=== PATIENT | male | born 1990 | race African-American/Black ===

== ENCOUNTER 2016-07-18 00:57 | Emergency (ER) | payer MEDICAID ==
[~2016-07-18] VITALS: Ht 185.4 cm; Wt 90.7 kg
[~2016-07-18 00:57] MED LIST: ACETAMINOPHEN-1 EAC1 ORAL; BACTRIM DS TAB1 EAC1 ORAL; CLINDAMYCIN HC300 MG ORAL; HYDROCODON-ACE1 EA15 ORAL; IBUPROFEN800 MG ORAL; KEFLEX500 MG ORAL; NORCO 5-325 TA1 EACH ORAL
[2016-07-18 01:07] VITALS: BP 107/67
[2016-07-18] MEDS ORDERED: NKM (01:07)
[2016-07-18] MEDS ORDERED: IBUPROFEN600 MG ORAL (02:56)
[2016-07-18] MEDS ORDERED: KEFLEX500 MG ORAL (02:56)
[2016-07-18 03:00] VITALS: BP 115/67
[2016-07-18 03:19] VITALS: BP 115/67
--- NOTE | 2016-07-18 11:42 | Diagnostic Imaging Report ---
Indications: PAIN Technique: 3 views of the right hand Comparison: None Findings: No acute fractures. No dislocations. Joint spaces are preserved. No radiopaque foreign body. Normal mineralization. Impression: No acute process
--- NOTE | 2016-07-21 13:59 | Emergency Room Report ---
History of Present Illness General Chief Complaint: Upper Extremity Injury Source: Patient Present Illness HPI Patient is a 25-year-old male who presented after increased pain swelling to his middle finger. Patient stated that he had crushed his hand in a gate. The patient had gradual onset of pain. He reported increased pain with movements. He had noted some initial abrasion to his hand. He reports some improvement in the swelling since initial injury. He denied any fever. He denied any numbness to his extremities. Allergies: Coded Allergies: No Known Allergies (Unverified , 11/09/14) Patient History Past Medical History: see triage record Reviewed Nursing Documentation: PMH: Agreed, PSxH: Agreed Nursing Documentation-PMH Past Medical History: No Stated History Review of Systems All Other Systems: negative except mentioned in HPI Physical Exam Vital Signs Date Time Temp Pulse Resp B/P Pulse Ox O2 Delivery O2 Flow Rate FiO2 07/18/16 01:01 97.7 81 16 107/67 98 Room Air General Appearance: well appearing, no apparent distress, alert, GCS 15 Head: normocephalic, atraumatic ENT: hearing grossly normal, normal voice Neck: full range of motion, supple Respiratory: no respiratory distress, speaking full sentences Cardiovascular #1: normal inspection, regular rate, rhythm, no edema Musculoskeletal: no calf tenderness Neurologic: normal inspection, alert, oriented x3, responsive, normal gait Psychiatric: mood/affect normal Skin: other - swelling to hand 3rd finger Medical Decision Making Diagnostic Impression: Primary Impression: Rash and other nonspecific skin eruption ER Course Patient presented for hand swelling. Differential diagnosis included wasn't limited to fracture, cellulitis, compartment syndrome among others. The patient presented perfusion to his fingers. X-ray imaging of the hand the 3 views interpreted by me showed normal bony alignment without fracture. Patient was given prescription for Keflex as a piercing may have a mild infection.The patient is advised to follow up with primary care doctor in 1-2 days. Patient is advised to return if any worsening condition or if any changes in status that are concerning. The patient is advised to keep his hand elevated as much as possible to minimize swelling. Last Vital Signs Date Time Temp Pulse Resp B/P Pulse Ox O2 Delivery O2 Flow Rate FiO2 07/18/16 03:19 97.7 68 17 115/67 99 Room Air Status: improved Disposition: HOME, SELF-CARE Condition: Stable Scripts Ibuprofen* (MOTRIN*) 600 Mg Tablet 600 MG ORAL Q8H Y for For Pain, #30 TAB 0 Refills Prov: Charanjit Rucker 07/18/16 Cephalexin* (KEFLEX*) 500 Mg Capsule 500 MG ORAL EVERY 6 HOURS, #28 CAP 0 Refills Prov: Charanjit Rucker 07/18/16 Referrals: [facility] (PCP) Patient Instructions: Hand Contusion Charanjit Rucker Jul 21, 2016 13:59
== END 2016-07-18 03:19 | disposition home or self-care (01) ==
LOC: EMR 01:47
DX: R21 Rash and other nonspecific skin eruption (principal)
CPT/HCPCS: 99283

== ENCOUNTER 2016-10-06 02:01 | Emergency (ER) | payer MEDICAID ==
[~2016-10-06] VITALS: Ht 185.4 cm; Wt 90.7 kg
[~2016-10-06 02:01] MED LIST changes: +IBUPROFEN600 MG ORAL; +NKM
[2016-10-06] MEDS ORDERED: Norco 5mg/325mg tab ORAL ONE (02:30)
--- NOTE | 2016-10-06 02:47 | Emergency Room Report ---
History of Present Illness General Chief Complaint: Upper Extremity Injury Source: Patient Present Illness HPI Is a 25-year-old male who is right-hand dominant. He presents with right wrist pain. He had a previous fracture of the base of the fifth metacarpal bone in the past. He was playing basketball and he fell on outstretched hand. Now swollen and tender. No nausea no vomiting. No fever chills. Worse with movement. Denies any other complaint. Allergies: Coded Allergies: No Known Allergies (Unverified , 11/09/14) Patient History Past Medical History: see triage record, old chart reviewed Past Surgical History: other Pertinent Family History: none Social History: Denies: smoking Immunizations: other Reviewed Nursing Documentation: PMH: Agreed, PSxH: Agreed Nursing Documentation-PMH Past Medical History: No Stated History Review of Systems Eye: Denies: blurred vision, eye pain ENT: Denies: ear pain, nose congestion, throat swelling Respiratory: Denies: cough, shortness of breath Cardiovascular: Denies: chest pain, palpitations Gastrointestinal: Denies: abdominal pain, diarrhea, nausea, vomiting Musculoskeletal: Reports: joint pain, joint swelling, Denies: back pain Skin: Denies: rash Neurological: Denies: headache, numbness Endocrine: Denies: increased thirst, increased urine Hematologic/Lymphatic: Denies: easy bruising All Other Systems: negative except mentioned in HPI Physical Exam Vital Signs Date Time Temp Pulse Resp B/P Pulse Ox O2 Delivery O2 Flow Rate FiO2 10/06/16 02:04 97.9 90 16 125/76 96 Room Air vitals normal Sp02 EP Interpretation: reviewed, normal General Appearance: well appearing, no apparent distress, alert Head: normocephalic, atraumatic Eyes: bilateral eye EOMI, bilateral eye PERRL ENT: hearing grossly normal, normal pharynx Neck: full range of motion, supple, no meningismus Respiratory: chest non-tender, lungs clear, normal breath sounds Cardiovascular #1: regular rate, rhythm, no murmur Gastrointestinal: normal bowel sounds, non tender, no mass, no organomegaly, no bruit, non-distended Musculoskeletal: back normal, gait/station normal, other - Right wrist: He has callus to base of fifth metacarpal bone. He has mild edema and swelling over the distal radius. Normal pulse. Sensation normal. Neurologic: alert, oriented x3 Psychiatric: mood/affect normal Skin: warm/dry Procedures Splinting Splinting : Consent: Verbal Pre-Made Type: velcro Splint: volar Pre-Proc Neuro Vasc Exam: normal Post-Proc Neuro Vasc Exam: normal Patient Tolerated: Well Complications: None Medical Decision Making Diagnostic Impression: Primary Impression: Right wrist sprain Qualified Codes: S63.501A - Unspecified sprain of right wrist, initial encounter ER Course Patient with right wrist sprain. No evidence of any fracture dislocation. We' ll discharge home. Other X-Ray Diagnostic Results # of Views/Limited Vs Complete: 3 View EP Interpretation: Yes Interpretation: no fractures, no dislocation, no soft tissue swelling Indication: Pain Impression: No acute disease Interpreting ER Provider: Aris Sotomayor MD Last Vital Signs Date Time Temp Pulse Resp B/P Pulse Ox O2 Delivery O2 Flow Rate FiO2 10/06/16 02:04 97.9 90 16 125/76 96 Room Air Referrals: ELIO MCCULLOUGH (PCP) ARIS SOTOMAYOR M.D. Oct 06, 2016 02:47
[2016-10-06] MEDS ORDERED: IBUPROFEN600 MG ORAL (02:48)
[2016-10-06 03:03] VITALS: BP_SYST 122; BP_SYST 125; BP_DIAS 76; BP_DIAS 78
--- NOTE | 2016-10-06 10:36 | Diagnostic Imaging Report ---
Clinical Indication:TRAUMA Technique: 3 views of the right wrist Comparison: Hand radiograph 07/18/2016 Findings: Unusual appearance to the hamate on the oblique and lateral views, with suggestion of possible bony fragments seen dorsally. These appear corticated, and are in retrospect visible on the prior study. No other evidence of acute fracture. No dislocation. Impression: Evidence of prior hamate fracture, presumably old. No definite acute bony trauma This agrees with the preliminary interpretation provided by the emergency room physician
== END 2016-10-06 03:00 | disposition home or self-care (01) ==
LOC: EMR 02:38
DX: S63.501A Unspecified sprain of right wrist, initial encounter (principal); W19.XXXA Unspecified fall, initial encounter; Y93.67 Activity, basketball; Y92.89 Other specified places as the place of occurrence of the external cause
CPT/HCPCS: 29260; 99283

== ENCOUNTER 2017-01-21 05:18 | Emergency (ER) | payer MEDICAID ==
[~2017-01-21] VITALS: Ht 182.9 cm; Wt 90.7 kg
[2017-01-21 05:25] VITALS: BP 129/75
[2017-01-21] MEDS ORDERED: Morphine Sulfate 4mg/ml Inj IM ONE (05:30)
[2017-01-21] MEDS ORDERED: TRAMADOL HCL50 MG ORAL (05:58)
[2017-01-21] MEDS ORDERED: BACTRIM DS TAB1 EAC1 ORAL (05:58)
[2017-01-21] MEDS ORDERED: KEFLEX500 MG ORAL (05:58)
[2017-01-21 06:04] VITALS: BP 135/79
--- NOTE | 2017-01-24 07:07 | Emergency Room Report ---
History of Present Illness General Chief Complaint: Skin Rash/Abscess Source: Patient Present Illness HPI 26-year-old M presents ED complaining of pain and swelling to left buttock x1 day. Patient states he has an abscess there which needs to be drained. States it is or he started to drain. Has history of multiple abscesses in this area in the past. Patient states he is supposed to followup with surgeon for definitive treatment. Pain is an 8/10, throbbing, nonradiating. Denies fevers or chills. No other aggravating relieving factors. Denies any other associated symptom Allergies: Coded Allergies: No Known Allergies (Unverified , 11/09/14) Patient History Past Medical History: none Past Surgical History: none Pertinent Family History: none Social History: Denies: smoking, alcohol use, drug use Immunizations: UTD Reviewed Nursing Documentation: PMH: Agreed, PSxH: Agreed Nursing Documentation-PMH Past Medical History: No Stated History Review of Systems All Other Systems: negative except mentioned in HPI Physical Exam Vital Signs Date Time Temp Pulse Resp B/P (MAP) Pulse Ox O2 Delivery O2 Flow Rate FiO2 01/21/17 05:20 99.0 106 16 99 Room Air 01/21/17 05:25 129/75 Sp02 EP Interpretation: reviewed, normal General Appearance: no apparent distress, alert, GCS 15, non-toxic Head: normocephalic Eyes: bilateral eye normal inspection, bilateral eye PERRL ENT: normal ENT inspection Neck: normal inspection Respiratory: normal inspection Cardiovascular #1: normal inspection Gastrointestinal: normal inspection Rectal: deferred Genitourinary: no CVA tenderness Musculoskeletal: normal inspection Neurologic: alert, oriented x3, responsive, motor strength/tone normal, sensory intact, speech normal Psychiatric: judgement/insight normal, memory normal, mood/affect normal, no suicidal/homicidal ideation Skin: other - induration to L buttock? discharge noted Lymphatic: normal inspection Procedures Incision and Drainage Incision and Drainage : Consent: Verbal Blade Size: 11 I & D Procedure: betadine prep, sterile drapes applied, sterile dressing applied Wound Location: other - L buttock Wound's Depth, Shape: other - abscess Wound Explored: purulent discharge expressed Splint Applied?: No Sling Applied?: No Patient Tolerated: Well Complications: None Medical Decision Making Diagnostic Impression: Primary Impression: Pilonidal sinus with abscess ER Course Hospital Course 26-year-old male presents ED complaining of pain and swelling to left buttock Differential-abscess, cellulitis, dermatitis, ulcer Clinical course Patient placed on stretcher. After initial history and physical I ordered pain medications i drained abscess without complication. Dressing applied I provided education to patient that this will likely recur given the location. Patient will need to followup with surgery for definitive removal Diagnosis - pilonidal sinus with abscess Stable and discharged to home with prescription for Bactrim, Keflex. wound Care instructions given. Followup with PMD. Return to ED if any signs of infection develop Last Vital Signs Date Time Temp Pulse Resp B/P (MAP) Pulse Ox O2 Delivery O2 Flow Rate FiO2 01/21/17 06:04 99.0 95 18 135/79 100 Room Air Status: improved Disposition: HOME, SELF-CARE Condition: Stable Scripts Trimethoprim/Sulfamethoxazole 160/800* (BACTRIM DS TABLET*) 1 Each Tablet 1 TAB ORAL Q12H, #14 TAB 0 Refills Prov: HARSHIL GUZMAN M.D. 01/21/17 Cephalexin* (KEFLEX*) 500 Mg Capsule 500 MG ORAL Q6H, #28 CAP 0 Refills Prov: HARSHIL GUZMAN M.D. 01/21/17 Tramadol Hcl* (ULTRAM*) 50 Mg Tablet 50 MG ORAL Q6H Y for For Pain, #30 TAB 0 Refills Prov: HARSHIL GUZMAN M.D. 01/21/17 Referrals: [facility]ERR[facility] (PCP) Patient Instructions: Incision and Drainage of a Pilonidal Cyst, Care After HARSHIL GUZMAN M.D. Jan 24, 2017 07:07
== END 2017-01-21 06:05 | disposition home or self-care (01) ==
LOC: EMR 05:38
DX: L05.02 Pilonidal sinus with abscess (principal); R21 Rash and other nonspecific skin eruption
CPT/HCPCS: 10060; 96372; 99284; J2270

== ENCOUNTER 2017-03-07 16:35 | Emergency (ER) | payer MEDICAID ==
[~2017-03-07] VITALS: Ht 185.4 cm; Wt 90.7 kg
[~2017-03-07 16:35] MED LIST changes: +TRAMADOL HCL50 MG ORAL
[2017-03-07] MEDS ORDERED: NKM (16:48)
[2017-03-07] MEDS ORDERED: Tylenol #3 tab (300mg/30mg) PO ONE (17:00)
[2017-03-07 17:43] VITALS: BP 116/68
[2017-03-07] MEDS ORDERED: Sodium Chloride 500ML 500 ML IV ONE (18:58)
[2017-03-07] MEDS ORDERED: levETIRAcetam 1,000mg/NS100ml 100 ML IVPB ONE (19:00)
[2017-03-07 19:05] VITALS: BP 125/71
[2017-03-07 19:22] LABS: BASOPHILS % (AUTO) 0.7 % (0.0-2.0); LYMPHOCYTES % (AUTO) 8.1 % (20.0-45.0); MEAN CORPUSCULAR HEMOGLOBIN 30.1 PG (27.0-31.0); MEAN CORPUSCULAR HGB CONC 33.2 G/DL (32.0-36.0); MEAN CORPUSCULAR VOLUME 91 FL (80-99); MONOCYTES % (AUTO) 8.2 % (1.0-10.0); PLATELET COUNT 184 K/UL (150-450); RED BLOOD COUNT 4.68 M/UL (4.70-6.10); RED CELL DISTRIBUTION WIDTH 11.8 % (11.6-14.8); WHITE BLOOD COUNT 8.3 K/UL (4.8-10.8)
[2017-03-07 19:34] LABS: PROTHROMBIN TIME 10.4 SEC (9.30-11.50)
[2017-03-07 19:37] LABS: ANION GAP 9 mmol/L (5-15); CALCIUM 9.1 MG/DL (8.5-10.1); CARBON DIOXIDE 26 MMOL/L (21-32); CHLORIDE 107 MMOL/L (98-107); CREATININE 0.8 MG/DL (0.55-1.30); GLOMERULAR FILTRATION RATE > 60 mL/min (>60); POTASSIUM 3.9 MMOL/L (3.5-5.1); SODIUM 142 MMOL/L (136-145)
[2017-03-07 19:42] LABS: ALANINE AMINOTRANSFERASE 40 U/L (12-78); ALBUMIN/GLOBULIN RATIO 0.8 (1.0-2.7); ASPARTATE AMINO TRANSFERASE 31 U/L (15-37)
[2017-03-07 20:06] VITALS: BP 125/71
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
--- NOTE | 2017-03-08 10:53 | Diagnostic Imaging Report ---
Indication: Facial pain Technique: CT maxillofacial was performed utilizing automated exposure control without intravenous contrast material. Axial and coronal images were generated. CT dose: Total DLP 660 mGycm; CTDI vol 28.2 mGy Comparison: None Findings: Mild left frontal scalp swelling is noted. There is no displaced fracture. Orbits, nasal bones and mandible appear intact. There is a small air-fluid level in the right sphenoid sinus. The mastoid air cells are clear. Impression: Mild left frontal scalp swelling. No displaced fracture. Clinical correlation recommended. Mild right sphenoid sinus air-fluid level may suggest debris or sinusitis. Clinical correlation recommended. Please refer to CT of the head for additional findings. [place] [facility] [place] the [employer] and the scans are performed using protocols designed to limit radiation exposure to as low as reasonably achievable to attain images of sufficient resolution adequate for diagnostic evaluation.
== END 2017-03-07 20:09 | disposition short-term general hospital (02) ==
LOC: EMR 16:51
DX: S09.8XXA Other specified injuries of head, initial encounter (principal); S06.2X0A Diffuse traumatic brain injury without loss of consciousness, initial encounter; Y04.2XXA Assault by strike against or bumped into by another person, initial encounter; Y92.89 Other specified places as the place of occurrence of the external cause
CPT/HCPCS: 36415; 70450; 70486; 80053; 85025; 85610; 85730; 86850; 86900; 86901; 96374; 96375; 99291; J1953; J7040

== ENCOUNTER 2018-01-06 18:53 | Emergency (ER) | payer MEDICAID ==
[~2018-01-06] VITALS: Ht 185.4 cm; Wt 79.4 kg
--- NOTE | 2018-01-06 19:38 | Emergency Room Report ---
History of Present Illness General Chief Complaint: Pain Source: Patient Present Illness HPI 27 YO male presents to the ED c/o 01/20 in severity MATTHEW with right sided numbness , facial pressure with intermittent dizziness x 1 day. Denies photophobia. localized pain to the left posterior aspect of his head with some radiation to the left lateral neck. 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 Patient reports subjective fevers and chills he denies taking medications for his symptoms. Patient denies recent travel or ill contacts with similar symptoms. Denies new trauma to the head or recent falls. Allergies: Coded Allergies: No Known Allergies (Unverified , 11/09/14) Patient History Past Medical History: see triage record Past Surgical History: none Pertinent Family History: none Reviewed Nursing Documentation: PMH: Agreed; PSxH: Agreed Nursing Documentation-PMH Past Medical History: No History, Except For Review of Systems All Other Systems: negative except mentioned in HPI Physical Exam Vital Signs Date Time Temp Pulse Resp B/P (MAP) Pulse Ox O2 Delivery O2 Flow Rate FiO2 01/06/18 19:16 100.5 115 22 126/72 99 Room Air 100.6 Sp02 EP Interpretation: reviewed, normal General Appearance: no apparent distress, alert, GCS 15, non-toxic Head: normocephalic, atraumatic Eyes: bilateral eye normal inspection, bilateral eye PERRL, bilateral eye other - no photophobia ENT: hearing grossly normal, normal pharynx, normal voice, uvula midline, moist mucus membranes, nasal congestion Neck: full range of motion, no meningismus Respiratory: chest non-tender, lungs clear, crackles - crackles ascultated on the left side. , speaking full sentences Cardiovascular #1: regular rate, rhythm Gastrointestinal: normal bowel sounds, non tender, soft Rectal: deferred Genitourinary: normal inspection Musculoskeletal: back normal, gait/station normal, normal range of motion, non- tender Neurologic: alert, oriented x3, responsive, motor strength/tone normal, sensory intact, normal gait, speech normal, other - pt. reporting paresthesias in the right arm. , grossly normal Psychiatric: judgement/insight normal Skin: normal color, no rash, warm/dry, well hydrated Lymphatic: no adenopathy Medical Decision Making PA Attestation Dr. Alarcon is my supervising physician whom pt. management has been discussed with. Diagnostic Impression: Primary Impression: Acute viral syndrome Additional Impressions: Headache Qualified Codes: R51 - Headache History of traumatic brain injury ER Course 27 YO male presents to the ED c/o 01/20 in severity MATTHEW with right sided numbness , facial pressure with intermittent dizziness x 1 day. Denies photophobia. localized pain to the left posterior aspect of his head with some radiation to the left lateral neck. 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 Patient reports subjective fevers and chills he denies taking medications for his symptoms. Patient denies recent travel or ill contacts with similar symptoms. Denies new trauma to the head or recent falls. Ddx considered but are not limited to meningitis, URI, Vital signs: pt. is tachycardic at 115 with a low grade fever of 100.5 H&PE are most consistent with URI with moderate sinus congestion. ORDERS: -CXR: Unremarkable -CT Head no Contrast: ordered due to failure to respond to ED interventions, and pt. reporting visual disturbances and MATTHEW not consistent with MATTHWE's he normally has ED INTERVENTIONS: -Tylenol 650mg -Reglan PO d/w pt. results of CT, his MATTHEW is not beginning to improve. pt. given strict ED return precautions for worsening or new symptoms, otherwise stable for very close outpatient follow up with PMD and possibly neurologist as needed. DISCHARGE: At this time pt. is stable for d/c to home. Will provide printed patient care instructions, and any necessary prescriptions. Care plan and follow up instructions have been discussed with the patient prior to discharge. Chest X-Ray Diagnostic Results Chest X-Ray Diagnostic Results : Chest X-Ray Ordered: Yes # of Views/Limited/Complete: 1 View Indication: Other - crackles on PE EP Interpretation: Yes PA Xray: Interpretation reviewed, by supervising MD, and agrees with findings. Interpretation: no consolidation, no effusion, no pneumothorax, no acute cardiopulmonary disease Impression: No acute disease CT/MRI/US Diagnostic Results CT/MRI/US Diagnostic Results : Imaging Test Ordered: CT Head Non Contrasted Impression "no ICH, mass effect or edema no evidence of acute cortical stroke no skull fracture. Visualized sinuses and mastoid air cells are clear". Per official radiology report- Please see report for specific details. Last Vital Signs Date Time Temp Pulse Resp B/P (MAP) Pulse Ox O2 Delivery O2 Flow Rate FiO2 01/06/18 19:16 100.5 115 22 126/72 99 Room Air 100.6 Disposition: HOME, SELF-CARE Condition: Stable Scripts Pseudoephedrine Hcl* (NEXAFED*) 30 Mg Tablet 30 MG ORAL Q6H PRN for congestion, #20 TAB Prov: Felisa Figueroa 01/06/18 Acetaminophen* (TYLENOL EXTRA STRENGTH*) 500 Mg Tablet 500 MG ORAL Q6H PRN for Mild Pain/Temp > 100.5, #20 TAB 0 Refills Prov: Felisa Figueroa 01/06/18 Guaifenesin/Dextromethorphan (Guaifenesin Dm Syrup) 5 Ml Syrup 1 TSP ORAL Q8H, #118 ML 0 Refills Prov: Felisa Figueroa 01/06/18 Metoclopramide Hcl* (REGLAN*) 10 Mg Tablet 10 MG ORAL THREE TIMES A DAY PRN for For Headache, #12 TAB Prov: Felisa Figueroa 01/06/18 Departure Forms: Return to Work Return to Work Date: Jan 09, 2018 Work Restrictions: None Other Restrictions: may return sooner if symptoms resolve. Return to Full Activity: Jan 09, 2018 Patient Instructions: General Headache Without Cause, Upper Respiratory Infection, Adult, [id number] Additional Instructions: Take medications as directed. Follow up with a Primary Care Provider in 3days may require Neurology referral, --Please review list of primary care clinics, if you do not already have a primary care provider Return sooner to ED if new symptoms occur, or current symptoms become worse. Do not drink alcohol, drive, or operate heavy machinery while taking [ ] as this may cause drowsiness. - Please note that this Emergency Department Report was dictated using [employer] technology software, occasionally this can lead to erroneous entry secondary to interpretation by the dictation equipment. Felisa Figueroa Jan 06, 2018 19:38
[2018-01-06 20:34] VITALS: BP 113/72
[2018-01-06] MEDS ORDERED: TYLENOL EXTRA500 MG ORAL (21:46)
[2018-01-06] MEDS ORDERED: REGLAN10 MG ORAL (21:46)
[2018-01-06] MEDS ORDERED: GUAIFENESIN DM118 M1 ORAL (21:46)
[2018-01-06] MEDS ORDERED: NEXAFED30 MG ORAL (21:46)
[2018-01-06 22:00] VITALS: BP 108/72
--- NOTE | 2018-01-07 09:51 | Diagnostic Imaging Report ---
Indication: Headache Technique: Contiguous 5 mm thick transaxial imaging of the head obtained in a Siemens Sensation [address] scanner. Soft tissue and bone windows generated. Automatic Exposure Control was utilized. Total Dose length Product (DLP): 1481.[address] Dose Index Volume (CTDIvol): 70.38 mGy Comparison: none Findings: The size and configuration of the cortical sulci, basal cisterns, and ventricles are within normal limits for age. There is no mass effect, midline shift, or edema identified. There is no evidence of acute hemorrhage or abnormal intra-axial or extra-axial fluid collections. The bones and soft tissues are unremarkable. Impression: No mass effect, edema or acute bleed. The CT scanner at [facility] is accredited by the [employer] and the scans are performed using dose optimization techniques as appropriate to a performed exam including Automatic Exposure control.
--- NOTE | 2018-01-07 10:41 | Diagnostic Imaging Report ---
Indication: Chest pain Comparison: None A single view chest radiograph was obtained. Findings: Cardiomediastinal appearance is within normal limits for age. The lungs are clear. Pulmonary vascularity is appropriate. The diaphragmatic contour is smooth and costophrenic angles are sharp. No pleural effusions are identified. There is a moderate scoliosis of the thoracic spine convex to the right. Impression: No acute findings Scoliosis
== END 2018-01-06 22:00 | disposition home or self-care (01) ==
LOC: EMR 19:50
DX: B34.9 Viral infection, unspecified (principal); R51 Headache; Z87.820 Personal history of traumatic brain injury
CPT/HCPCS: 70450; 71045; 99284

== ENCOUNTER 2018-06-23 01:05 | Emergency (ER) | payer MEDICAID ==
[~2018-06-23 01:05] MED LIST changes: +GUAIFENESIN DM118 M1 ORAL; +NEXAFED30 MG ORAL; +REGLAN10 MG ORAL; +TYLENOL EXTRA500 MG ORAL
--- NOTE | 2018-06-23 03:54 | Emergency Room Report ---
History of Present Illness General Source: Patient Present Illness HPI Patient is 27-year-old male presented after increased right-sided ankle pain. Patient reportedly had jumped off of a trailer and inverted his ankle. Injury occurred approximately 2-3 hours prior to arrival. Patient had not been able to ambulate after the fall. He reports of increased pain and swelling. He denies any medial pain he reports having pain to the lateral aspect of his right ankle. He denies prior injuries. Allergies: Coded Allergies: No Known Allergies (Unverified , 11/09/14) Patient History Past Medical History: see triage record Reviewed Nursing Documentation: PMH: Agreed; PSxH: Agreed Review of Systems All Other Systems: negative except mentioned in HPI Physical Exam General Appearance: well appearing, no apparent distress, alert, GCS 15 Head: normocephalic, atraumatic ENT: hearing grossly normal, normal voice Neck: full range of motion, supple Respiratory: no respiratory distress, speaking full sentences Cardiovascular #1: normal inspection Musculoskeletal: no calf tenderness, decreased range of mation, swelling - lateral malleolar tenderness, soft tissue swelling to ankle area Psychiatric: mood/affect normal Skin: no rash Medical Decision Making Diagnostic Impression: Primary Impression: Ankle sprain ER Course Patient presented for leg and ankle pain. Differential diagnosis included was not limited to vascular insufficiency, fracture, osteomyelitis, sprain, deep venous thrombosis. X-ray imaging of the ankle was obtained. X-ray imaging of the ankle 3 views interpreted by me showed normal bony alignment without fracture. Patient was given Maksim wrap as well as crutches. He was advised to follow-up with primary care physician for recheck. He was advised to keep his leg elevated and continue taking NSAIDs. Patient was advised to return if he began having any numbness or weakness. Status: improved Disposition: HOME, SELF-CARE Condition: Stable Referrals: KHOA CARRERA,REFERRING (PCP) Charanjit Rucker MD Jun 23, 2018 03:54
== END 2018-06-23 04:00 | disposition left against medical advice (07) ==
LOC: EMR 02:20
DX: S93.401A Sprain of unspecified ligament of right ankle, initial encounter (principal); W17.89XA Other fall from one level to another, initial encounter; Y92.9 Unspecified place or not applicable
CPT/HCPCS: 99284

== ENCOUNTER 2019-04-29 12:54 | Emergency (ER) | payer SELFPAY ==
[~2019-04-29] VITALS: Ht 185.4 cm; Wt 83.9 kg
[2019-04-29 13:05] VITALS: BP 128/90
--- NOTE | 2019-04-29 13:05 | NUR ---
ED Nurse Note: Patient arrived to ED c/p penile discharge and pain with urination x 1 day. Patient AxO x 4. Urine collected and sent to lab.
--- NOTE | 2019-04-29 13:25 | NUR ---
ED Nurse Note: Edwin SANTANA at bedside.
[2019-04-29] MEDS ORDERED: Lidocaine 1% MPF 10mg/ml 5ml INJ ONE (13:30)
[2019-04-29] MEDS ORDERED: Azithromycin 250mg tab ORAL ONE (13:30)
[2019-04-29 13:39] LABS: APPEARANCE,URINE SLIGHTLY CLOUDY; BILIRUBIN, URINE NEGATIVE (NEGATIVE); GLUCOSE, URINE (UA) NEGATIVE (NEGATIVE); KETONES,URINE NEGATIVE (NEGATIVE); LEUKOCYTE ESTERASE ,URINE 1+ (NEGATIVE); NITRITE,URINE NEGATIVE (NEGATIVE); PH,URINE 5 (4.5-8.0); PROTEIN,URINE NEGATIVE (NEGATIVE); UROBILINOGEN,URINE NORMAL MG/DL (0.0-1.0)
[2019-04-29 13:40] LABS: COLOR,URINE YELLOW
--- NOTE | 2019-04-29 13:49 | Emergency Room Report ---
History of Present Illness General Chief Complaint: Male Urogenital Problems Source: Patient Present Illness HPI 28-year-old male with no symptom past medical history here complaining of 1 day of yellow penile discharge after sexual encounter. Patient reports that his partner had the same discharge was tested today and diagnosed with gonorrhea. Patient complains of dysuria however denies any penile ulceration or pain. Denies any scrotal pain, fever and chills, nausea vomiting. Denies urinary frequency and urgency at this time. Patient agrees to be treated for both chlamydia and gonorrhea. Allergies: Coded Allergies: No Known Allergies (Unverified , 11/09/14) Patient History Past Medical History: see triage record Past Surgical History: unable to obtain Pertinent Family History: none Immunizations: UTD Reviewed Nursing Documentation: PMH: Agreed; PSxH: Agreed Nursing Documentation-PMH Past Medical History: No Stated History Review of Systems All Other Systems: negative except mentioned in HPI Physical Exam Vital Signs Date Time Temp Pulse Resp B/P (MAP) Pulse Ox O2 Delivery O2 Flow Rate FiO2 04/29/19 13:00 98.1 80 17 128/90 (103) 99 Room Air Sp02 EP Interpretation: reviewed, normal General Appearance: no apparent distress, alert, GCS 15, non-toxic Head: normocephalic, atraumatic Eyes: bilateral eye normal inspection, bilateral eye PERRL ENT: hearing grossly normal, normal pharynx, no angioedema, normal voice Neck: full range of motion, supple/symm/no masses Respiratory: chest non-tender, lungs clear, normal breath sounds, no rhonchi, no wheezing, speaking full sentences Cardiovascular #1: regular rate, rhythm, no edema, no murmur Gastrointestinal: non tender, soft Rectal: deferred Musculoskeletal: back normal Neurologic: alert, oriented Psychiatric: judgement/insight normal, memory normal, mood/affect normal, no suicidal/homicidal ideation Skin: no rash Lymphatic: no adenopathy Medical Decision Making PA Attestation All my diagnosis and treatment plans were reviewed ad discussed with my supervising physician Dr. Powell Diagnostic Impression: Primary Impression: Exposure to gonorrhea Additional Impression: UTI (urinary tract infection) ER Course 28-year-old male with no symptom past medical history here complaining of 1 day of yellow penile discharge after sexual encounter. Patient reports that his partner had the same discharge was tested today and diagnosed with gonorrhea. Patient complains of dysuria however denies any penile ulceration or pain. Denies any scrotal pain, fever and chills, nausea vomiting. Denies urinary frequency and urgency at this time. Patient agrees to be treated for both chlamydia and gonorrhea. Ddx considered but are not limited to: UTI, chlamydia, Gonorrhea, syphilis, HIV , herpes 1 or 2 Vital signs: are WNL, pt. is afebrile H&PE are most consistent with : Gonorrhea exposure, UTI ORDERS: UA, urince cx, Keflex ED INTERVENTIONS: Rocephin, azithromycin DISCHARGE: At this time pt. is stable for d/c to home. Will provide printed patient care instructions, and any necessary prescriptions. Care plan and follow up instructions have been discussed with the patient prior to discharge. Patient to follow-up with primary care provider, take medication as directed, use condoms during sexual encounter. Last Vital Signs Date Time Temp Pulse Resp B/P (MAP) Pulse Ox O2 Delivery O2 Flow Rate FiO2 04/29/19 13:05 98.1 17 128/90 99 Room Air 04/29/19 13:00 80 Disposition: HOME, SELF-CARE Condition: Stable Patient Instructions: Gonorrhea, Urinary Tract Infection Additional Instructions: Take medication as directed, use condoms during sexual encounter, follow-up with your primary care provider, if worsening symptoms return to the emergency room Edwin Birch Apr 29, 2019 13:49
[2019-04-29] MEDS ORDERED: CEPHALEXIN500 MG ORAL (13:50)
--- NOTE | 2019-04-29 13:54 | NUR ---
ER DISCHARGE NOTE: Patient is cleared for DC by Edwin SANTANA. Patient AxO x 4, VSS. Patient verbalized understanding of DC instructions. ID band removed. Patient ambulates with steady gait, took all belongings.
== END 2019-04-29 14:09 | disposition home or self-care (01) ==
LOC: EMR 13:48
DX: Z20.2 Contact with and (suspected) exposure to infections with a predominantly sexual mode of transmission (principal); N39.0 Urinary tract infection, site not specified
CPT/HCPCS: 81003; 87086; 96372; 99283; J0696